=== PATIENT | male | born 1975 | race Caucasian/White ===

== ENCOUNTER 2020-12-18 09:20 | Outpatient (CLI) | payer BC ==
[2020-12-18 10:01] VITALS: BP 108/76
--- NOTE | 2020-12-18 10:01 | SLEEP CARE CONSULTATION ---
Information from patient questionnaire entered by Narda Clayton. I have reviewed and concur with the information entered by Narda Clayton. This document represents the service I personally performed and the decisions made by me, Perla Engel ARNP. History of Present Illness Service Date and Time: 12/18/2020 0920 Reason for Visit: New patient, Previously diagnosed sleep apnea (AHI OF 19) Chief Complaint: reports: Snoring, Observed pauses in breathing Date of Onset: 10/2005 Usual bedtime: 3820-6207 Time it takes to fall asleep: under 10 minutes Snores at night: Yes Observed to quit breathing while asleep: Yes Sleeps alone due to snoring: Yes (half the time) Number of times waking at night: 1-2 Reasons for waking at night: reports: Bathroom Toss, Turn, or Twitch while sleeping: No Recalls having dreams: No Usually gets out of bed at: 0700 Feels refreshed in the morning: No Morning headache: No Sleepy or fatigued during the day: No (only rarely) Ever fallen asleep while driving: No Takes day naps: No Dreams during day naps: No Prior sleep studies: Yes Year and Where: [facility] Type of Sleep Study: Home sleep study Additional HPI information: SURAJ CORNELL was diagnosed to have moderate, AHI 19, obstructive sleep apnea- hypopnea syndrome and comes in today to establish care and discuss options for treatment. - Parasomnia Symptoms Ever been unable to move upon waking from sleep: No Walks in sleep: No Talks in sleep: No Ever acted out dreams in sleep: No Ever felt weak in the knees when startled or emotional: No Bothered by creepy, crawly, restless sensations in legs: No Problems with memory or concentration: No CPAP Compliance Data - Data Reviewed with Patient Average duration of nightly device use: 2 hours 56 minutes Compliance rate %: 2 Current pressure setting (cmH2O): 5-20 Average residual AHI: 4.2 Central apnea: 0.4 Obstructive apnea: 0.6 Average large leak: 32.1 L/min Compliance data discussion: He has not been able to use the CPAP due to the mask not being comfortable. He has facial hair and has difficulty getting a good seal on his face. He is using a full face that goes under nose and over mouth. He wakes up hourly with using the mask and CPAP machine. He feels like he is waking up more tired on days he uses the machine. Subjective Missed days of use due to: reports: mask issues Patient concerns: reports: mask discomfort, mask leak noise, dry mouth, nose, throat (dry mouth). 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 Patient is and lives in [place]. Have you smoked in the past 12 months: No Alcohol use: Yes Alcohol amount and frequency: 5x/week, 2 glasses wine Caffeine use: Yes Caffeine amount and frequency: cup coffee in AM Family History Family history of sleep disordered breathing: Yes Family Hx Sleep Apnea: Mother: Snoring, Sibling: Snoring Allergies and Home Medications Drug allergies reviewed: Yes (Sulfa drugs) Home medication list reviewed: Yes (ointment for psoriasis) Review of Systems Weight gain over past 5 years: 10 Weight loss over past 5 years: 10 Psychiatric: reports: anxiety (infrequent) Ear/Nose/Throat: reports: nasal congestion, dry mouth/throat (at night), wisdom teeth removed. denies: tonsillectomy Musculoskeletal: reports: joint pain Immunologic: reports: other (psoriasis) Physical Exam Blood Pressure: 108/76 Cuff size: wrist Heart Rate: 70 O2 Saturation: 97 Height: 5 ft 11 in Weight: 192 lb Body Mass Index: 26.7 BMI Classification: Overweight Impression and Plan 1. Obstructive Sleep Apnea-Hypopnea Syndrome, moderate, as diagnosed in 2013, wi th very poor treatment compliance and fair apnea control. On CPAP therapy, he does not feel that he is able to sleep through the night and feels more tired the next day when he uses his CPAP due to frequent night awakenings. He states the pressure is not a problem and feel comfortable. He has had no significant weight gain over the last several years since his last sleep study. He would like to try an oral appliance treatment for his sleep apnea because he feels that he would be able to be more compliant with this modality. He has only used the machine 7 days of the last 90 days. I will have him repeat a sleep study to verify his diagnosis and severity. This will also give me more information to determine best treatment option for him at that time. He voiced understanding and agreement with plan of care. Patient's apnea severity and rationale for treatment to reduce apnea, improve sleep quality and reduce cardiovascular and cerebrovascular events was reviewed. * Schedule polysomnography/HST +- manual CPAP titration study and return in 1-2 weeks after the study to discuss result and initiate therapy. * Avoid long distance driving or driving when feeling sleepy. * Avoid alcohol, sedative and muscle relaxant around bedtime. * Attempt to lose weight. * Review instructions provided by trained office staff on how to prepare for the sleep study. * Return for follow-up after sleep study completed. Counseling Topics: Weight loss health impact Visit Type: In Office Time Spent with Patient (minutes): 32 Provider Statement: I spent 100% of the Face to Face Visit with the patient with greater than 50% spent counseling the patient and coordination of care.
== END 2020-12-18 09:21 | disposition home or self-care (01) ==
LOC: SC 09:20
PROVIDERS: ATTEND Nurse Practitioner Family
DX: G47.33 Obstructive sleep apnea (adult) (pediatric) (principal); E66.3 Overweight; Z68.26 Body mass index [BMI] 26.0-26.9, adult
CPT/HCPCS: 99203; 99212

== ENCOUNTER 2021-03-04 16:32 | Outpatient (CLI) | payer BC | END 2021-03-04 16:33 | disposition home or self-care (01) | LOC: SC 16:32 | PROVIDERS: ATTEND Nurse Practitioner Family | DX: G47.33 Obstructive sleep apnea (adult) (pediatric) (principal); R09.02 Hypoxemia; E66.3 Overweight; Z68.26 Body mass index [BMI] 26.0-26.9, adult | CPT/HCPCS: 95806 ==

== ENCOUNTER 2021-03-12 13:58 | Outpatient (CLI) | payer BC ==
--- NOTE | 2021-03-12 14:15 | SLEEP CARE CONSULTATION ---
Information from patient questionnaire entered by Marianna Perez. I have reviewed and concur with the information entered by Marianna Perez. This document represents the service I personally performed and the decisions made by , Perla Engel ARNP. History of Present Illness Service Date and Time: 03/12/2021 1400 Initial [place] Sleepiness Scale score: 4 (in 2020) Current [place] Sleepiness Scale score: 3 Additional HPI information: SURAJ CORNELL returns for follow up and results of the recently performed home sleep study. I explained the pathophysiology behind obstructive sleep apnea. We then spent quite a bit of time discussing different treatment options. For mild obstructive sleep apnea, surgery and oral appliance are alternatives to nasal CPAP therapy but in moderate or severe cases, nasal CPAP is the most effective and reliable treatment. Because apnea is primarily in supine position, then positional management therapy could be effective. Methods discussed such as positioning with pillows, using a T-shirt with tennis balls in the back, and shown commercial products that have a pillow format on back to prevent supine sleep. I reviewed the impact of weight changes on sleep apnea and strongly recommended losing weight. Patient counseled not drink alcohol less than 4 hours before bedtime as it can increase snoring and apnea. Patient was cautioned about risks of drowsy driving until sleepiness symptoms resolve. Sleep Study - Results Type of Sleep Study: Home sleep study Prior sleep studies: Yes (HST) Year and Where: [facility] Polysomnography/Home Sleep Study results: Physician Impression: The quality of the study is good. The length of the study is adequate (> 240 minutes). Please also see the tabulated and graphic data. 1. Obstructive Sleep Apnea-Hypopnea (ICD-10 G47.33), moderate, with an AHI of 26.0/hr and miranda SaO2 of 77%. During the study, the patient had 138 apneas (138 obstructive, 0 central, 0 mixed) and 17 hypopneas. The longest episode lasted 139.5 seconds. The respiratory events occurred almost exclusively during supine sleep (supine AHI was 37.6 and non-supine, 3.01). 2. Hypoxemia (ICD-10 R09.02), moderate, with the lowest oxygen saturation of 77 % and 23.9 minutes with SaO2 under 90%. Baseline oxygen saturation was normal (Average oxygen saturation was 93%). Physical Exam Vital signs obtained and entered by: Telehealth visit to reduce exposure during covid pandemic Height: 5 ft 11 in Impression and Plan 1. Obstructive Sleep Apnea-Hypopnea Syndrome, moderate, with lowest oxygen saturation of 77%. Obviously this is the cause of the patients symptoms of unrefreshed sleep, and excessive daytime sleepiness. Patient has tried a CPAP in the past and felt he woke up more with it than without. Since patients apnea is primarily in supine position, patient advised that he can try positional therapy and he agreed with plan. He is also advised to lose weight as this will reduce snoring and apnea. An oral appliance can also be used for snoring but often is not covered by insurance. Follow up is scheduled for 1-2 months to check effectiveness. * Positional management therapy. * Attempt to lose weight. * Avoid alcohol consumption near bedtime. * Avoid supine sleep * The patient is again cautioned about driving until sleepiness completely resolves. * Return in 1-2 months. I will assess response to therapy and compliance at that time. Counseling Topics: Weight loss health impact Visit Type: Telehealth Video Video Type: K[place]a Patient Location: Home Location of Provider: Office Patient agrees and consents to this telehealth visit type: Yes Patient agrees to have their insurance billed: Yes Time Spent with Patient (minutes): 20 Provider Statement: I spent 100% of the Telehealth Video Call with the patient with greater than 50% spent counseling the patient and coordination of care.
== END 2021-03-12 13:59 | disposition home or self-care (01) ==
LOC: SC 13:58
PROVIDERS: ATTEND Nurse Practitioner Family
DX: G47.33 Obstructive sleep apnea (adult) (pediatric) (principal)